=== PATIENT | female | born 1955 | race Caucasian/White ===

== ENCOUNTER 2021-04-08 09:19 | Day surgery (SDC) | payer MEDICARE ==
[2021-04-08] VITALS (9 sets, daily range): BP systolic 101–131; BP diastolic 48–72
[~2021-04-08] VITALS: Ht 157.5 cm; Wt 96.8 kg
[2021-04-08 10:15] LABS: BASOPHILS # (AUTO) 0.1 X10'3 (0-0.2); BASOPHILS % (AUTO) 1.1 % (0-1); EOSINOPHILS # (AUTO) 0.2 X10'3 (0-0.9); EOSINOPHILS % (AUTO) 2.8 % (0-6); HEMATOCRIT 41.4 % (35.0-45.0); HEMOGLOBIN 13.8 g/dl (12.0-16.0); LYMPHOCYTES # (AUTO) 1.5 X10'3 (1.1-4.8); LYMPHOCYTES % (AUTO) 24.2 % (21-51); MEAN CORPUSCULAR HGB CONC 33.2 g/dL (33.0-36.5); MEAN CORPUSCULAR VOLUME 87.2 FL (78-98); MEAN PLATELET VOLUME 8.3 FL (7.4-10.4); MONOCYTES # (AUTO) 0.5 X10'3 (0-0.9); MONOCYTES % (AUTO) 7.8 % (2-12); NEUTROPHILS % (AUTO) 64.1 % (42-75); PLATELET COUNT 247 X10'3 (140-440); RED BLOOD COUNT 4.75 X10'6 (4.20-5.60); RED CELL DISTRIBUTION WIDTH 14.5 % (11.5-14.5); WHITE BLOOD COUNT 6.3 X10'3 (4.5-11.0)
[2021-04-08] MEDS ORDERED: DULA0.75 SQ (10:33)
[2021-04-08] MEDS ORDERED: LEVO100C4 PO (10:33)
[2021-04-08] MEDS ORDERED: OMEP20TA5 PO (10:33)
[2021-04-08] MEDS ORDERED: ATOR20TA66 PO (10:33)
[2021-04-08] MEDS ORDERED: METF-436 PO (10:33)
[2021-04-08] MEDS ORDERED: SERT-434 PO (10:33)
[2021-04-08] MEDS ORDERED: diphenhydrAMINE 25mg capsule PO ONE (10:40)
[2021-04-08] MEDS ORDERED: LIDOcaine 1% (10mg/ml)w/preservative injection 20ml MDV ONE (10:51)
[2021-04-08] MEDS ORDERED: iohexol 350MG/ML 100ml bottle IV ONE (10:51)
[2021-04-08] MEDS ORDERED: iohexol 350 MG/ML 50ML vial IV ONE (10:51)
[2021-04-08] MEDS ORDERED: midazolam 1 mg/ML 2ml injection ONE (10:51)
[2021-04-08] MEDS ORDERED: fentaNYL/PF 50MCG/1 ML 2ML syringe ONE (10:51)
[2021-04-08 11:04] LABS: ALBUMIN 3.7 G/DL (3.4-5.0); ANION GAP 7 (8-16); BLOOD UREA NITROGEN 11 MG/DL (7-18); BUN/CREATININE RATIO 16.9 (6.6-38.0); CALCIUM 8.8 MG/DL (8.5-10.1); CHLORIDE 106 MMOL/L (99-107); CREATININE 0.65 MG/DL (0.40-0.90); GLUCOSE 111 MG/DL (70-104); MAGNESIUM 2.1 MG/DL (1.5-2.4); POTASSIUM 4.1 MMOL/L (3.5-5.1); SODIUM 143 MMOL/L (135-145); TOTAL CARBON DIOXIDE 29.9 MMOL/L (24-32); eGFR > 90 ML/MIN
[2021-04-08] MEDS ORDERED: acetaminophen 325mg tablet PO PRN (12:25)
[2021-04-08] MEDS ORDERED: HYDROcodone/acetaminophen 5mg/325mg tablet PO PRN (12:25)
[2021-04-08] MEDS ORDERED: HYDROcodone/acetaminophen 10/325mg tab PO PRN (12:25)
[2021-04-08] MEDS ORDERED: proCHLORperazine 10 MG/2 ml inj IV PRN (12:25)
[2021-04-08] MEDS ORDERED: ondansetron/PF 4mg/2ml inj IV PRN (12:25)
== END 2021-04-08 15:24 | disposition home or self-care (01) ==
LOC: SSTAY O 09:19
PROVIDERS: ATTEND Internal Medicine Cardiovascular Disease
DX: R94.30 Abnormal result of cardiovascular function study, unspecified (principal); E78.5 Hyperlipidemia, unspecified; R06.00 Dyspnea, unspecified; E66.09 Other obesity due to excess calories; K21.9 Gastro-esophageal reflux disease without esophagitis; E11.9 Type 2 diabetes mellitus without complications; E03.9 Hypothyroidism, unspecified; I51.7 Cardiomegaly; Z87.891 Personal history of nicotine dependence
CPT/HCPCS: 36415; 80048; 83735; 85025; 93005; 93458; C1760; C1769; C1894; J1644; J2001; J2250; J3010; Q9967; 99152; 99153; A4620; A6258

== ENCOUNTER 2021-07-19 05:18 | Inpatient (IN) | payer MEDICARE ==
[2021-07-13 16:57] LABS: BASOPHILS # (AUTO) 0.1 X10'3 (0-0.2); BASOPHILS % (AUTO) 0.9 % (0-1); EOSINOPHILS # (AUTO) 0.2 X10'3 (0-0.9); EOSINOPHILS % (AUTO) 3.1 % (0-6); LYMPHOCYTES % (AUTO) 27.5 % (21-51); MEAN CORPUSCULAR HEMOGLOBIN 28.7 PG (27.0-31.0); MEAN CORPUSCULAR HGB CONC 33.1 g/dL (33.0-36.5); MEAN CORPUSCULAR VOLUME 86.7 FL (78-98); MEAN PLATELET VOLUME 8.6 FL (7.4-10.4); MONOCYTES # (AUTO) 0.7 X10'3 (0-0.9); MONOCYTES % (AUTO) 9.5 % (2-12); NEUTROPHILS # (AUTO) 4.2 X10'3 (1.8-7.7); PRE OP HEMATOCRIT 42.1 % (35.0-45.0); PRE OP HEMOGLOBIN 13.9 g/dL (12.0-16.0); PRE OP PLATELET COUNT 267 X10'3 (140-440); RED BLOOD COUNT 4.86 X10'6 (4.20-5.60); RED CELL DISTRIBUTION WIDTH 13.5 % (11.5-14.5)
[2021-07-13 17:18] LABS: HEMOGLOBIN A1C 6.2 % (4.5-6.2)
[2021-07-13 17:25] LABS: ALBUMIN 3.8 G/DL (3.4-5.0); ALBUMIN/GLOBULIN RATIO 1.1 (1.1-1.5); ALKALINE PHOSPHATASE 88 IU/L (46-116); BLOOD UREA NITROGEN 10 MG/DL (7-18); BUN/CREATININE RATIO 15.4 (6.6-38.0); CALCIUM 8.7 MG/DL (8.5-10.1); CHLORIDE 102 MMOL/L (99-107); CREATININE 0.65 MG/DL (0.40-0.90); PRE OP ALT 62 U/L (30-65); PRE OP ANION GAP 9 (8-16); PRE OP AST 44 U/L (10-37); PRE OP BILIRUB, TOTAL 0.3 MG/DL (0.0-1.0); PRE OP GLUCOSE 103 MG/DL (70-104); PRE OP POTASSIUM 3.8 MMOL/L (3.4-5.1); PRE OP SODIUM 140 MMOL/L (135-145); TOTAL CARBON DIOXIDE 29.5 MMOL/L (24-32); TOTAL PROTEIN 7.3 G/DL (6.4-8.2); eGFR > 90 ML/MIN
[~2021-07-19] VITALS: Ht 157.5 cm; Wt 94.8 kg
[2021-07-19] VITALS (19 sets, daily range): BP systolic 90–131; BP diastolic 53–83
[~2021-07-19 05:18] MED LIST: ATOR40TA PO; DIPH50CA46 PO; DULA1.5P SQ; FERR-116 PO; LEVO100C4 PO; METF-436 PO; OMEG-79 PO; OMEP40CA21 PO; SERT50TA PO; ringers solution, lacted 1,000 ML IV SCH
[2021-07-19] MEDS ORDERED: vancomycin 1,500 MG in NS 300ml IV soln IV ONE (05:30)
[2021-07-19] MEDS ORDERED: cefazolin/dext.iso 2gm/100ml IV ONE (05:30)
[2021-07-19] MEDS ORDERED: famotidine 20mg tablet PO ONE (05:30)
[2021-07-19] MEDS ORDERED: tranexamic acid 650mg tablet PO ONE (05:30)
[2021-07-19] MEDS ORDERED: ketorolac trometh. 30mg/ml inj. ONE (06:52)
[2021-07-19] MEDS ORDERED: ROPIVAcaine 0.5% (5mg/ml) 30ml vial ONE ×2 (06:52→07:45)
[2021-07-19] MEDS ORDERED: cloNIDine hcl/PF 100mcg/ml inj ONE (07:12)
[2021-07-19] MEDS ORDERED: tetracaine 1% (10mg/ml) pres. free inj. ONE (07:12)
[2021-07-19] MEDS ORDERED: MIDAZolam 1 MG/ML 5ML VIAL ONE (07:15)
[2021-07-19] MEDS ORDERED: morphine /PF 1mg/ml 10ml inj. ONE (07:15)
[2021-07-19] MEDS ORDERED: 0.9 % SODIUM CHLORIDE 10 ML VIAL ONE ×2 (07:45)
[2021-07-19] MEDS ORDERED: ePHEDrine 50MG/ML INJ. ONE (07:45)
[2021-07-19] MEDS ORDERED: dexamethasone sod phosphate 4mg/ml inj. ONE (07:45)
[2021-07-19] MEDS ORDERED: propofol inj 20 ML IV ONE ×3 (07:45)
[2021-07-19] MEDS ORDERED: magnesium hydroxide 30ml (MOM) UD suspension PO PRN (09:55)
[2021-07-19] MEDS ORDERED: ondansetron/PF 4mg/2ml inj IV PRN ×3 (09:55)
[2021-07-19] MEDS ORDERED: naloxone 2mg/2ml inj 2 MG in normal saline 500ml IV soln 500 ML IV PRN (09:55)
[2021-07-19] MEDS ORDERED: bisacodyl 10mg suppository rectal RC PRN (09:55)
[2021-07-19] MEDS ORDERED: morphine 4 MG/ML inj SYRINge IV PRN (09:55)
[2021-07-19] MEDS ORDERED: HYDROmorphone 1 mg/ml syringe IV PRN (09:55)
[2021-07-19] MEDS ORDERED: morphine 2 MG/ML inj. syringe IV PRN (09:55)
[2021-07-19] MEDS ORDERED: diphenhydrAMINE 25mg capsule PO PRN ×2 (09:55)
[2021-07-19] MEDS ORDERED: HYDROmorphone inj. 0.5 MG/0.5 ML DISP.SYRIN IV PRN (09:55)
[2021-07-19] MEDS ORDERED: labetalol 20mg/4ml (5mg/ml) syringe IV PRN (09:55)
[2021-07-19] MEDS ORDERED: ringers solution, lacted 1,000 ML IV SCH (09:55)
[2021-07-19] MEDS ORDERED: acetaminophen 1,000mg/100ml IV 100 ML IV PRN (09:55)
[2021-07-19] MEDS ORDERED: diphenhydrAMINE 50 mg/ml inj IV PRN (09:55)
[2021-07-19] MEDS ORDERED: oxyCODONE IR 5mg (immed. release) tablet PO PRN ×2 (09:55)
[2021-07-19] MEDS ORDERED: meperidine/PF 25mg/ml syringe IV PRN (09:55)
[2021-07-19] MEDS ORDERED: proCHLORperazine 10 MG/2 ml inj IV PRN (09:55)
[2021-07-19] MEDS ORDERED: acetaminophen 325mg tablet PO PRN (09:55)
[2021-07-19] MEDS ORDERED: hydrALAZINE 20mg/ml inj. IV PRN (09:55)
--- NOTE | 2021-07-19 09:55 | NUR ---
Received from OR via , accompanied by Anesthesiologist and report given by Anesthesiolgist. PATIENT WAKING UP, DENIES PAIN, V/S WNL, NEUROCHECKS INTACT, SENSATIONS T11, 20G PIV LUE, DRESSING TO RIGHT KNEE CDI WITH COLD POWDER PACK, F/C DRAINING CLEAR YELLOW URINE. SCD ON.
--- NOTE | 2021-07-19 11:45 | NUR ---
PATIENTA&OX4, DENIES PAIN, V/S WNL, NEUROCHECKS INTACT, SENSATIONS T11, 20G PIV LUE, DRESSING TO RIGHT KNEE CDI WITH COLD POWDER PACK, F/C DRAINING CLEAR YELLOW URINE. SCD ON. REPORT CALLED AND PATIENT TRANSPORTED TO FLOOR AND HOOKED UP TO MONITORS IN NEW ROOM AND EXCEPTING RN HAS TAKEN OVER PATIENT CARE.
[2021-07-19] MEDS: potassium cl 20mEq in 1/2 NS 1,000 ML IV SCH ×2 (15:48→16:06)
[2021-07-19] MEDS: ceFAZolin/D5W- 1GM premix 50 ML IV SCH ×2 (15:59→23:51)
[2021-07-19] MEDS: gabapentin 300mg capsule PO SCH ×2 (16:12→21:31)
[2021-07-19] MEDS: acetaminophen 325mg tablet PO SCH ×2 (16:14→21:32)
[2021-07-19] MEDS ORDERED: metFORMIN 500mg tablet PO ONE (16:25)
[2021-07-19] MEDS: OMEGA-3/DHA/EPA/FISH OIL 1 EACH CAPSULE.DR PO SCH (20:00)
[2021-07-19] MEDS ORDERED: vancomycin/NS 1 GM ADD-VANTAGE 250 ML IV SCH (20:00)
[2021-07-19] MEDS ORDERED: DIPHENHYDRAMINE HCL PO SCH (21:00)
[2021-07-19] MEDS ORDERED: atorvastatin 20mg tablet PO SCH (21:00)
[2021-07-19] MEDS ORDERED: sennosides 8.6mg tablet PO SCH (21:00)
[2021-07-20 00:06] VITALS: BP 105/54
[2021-07-20] MEDS: potassium cl 20mEq in 1/2 NS 1,000 ML IV SCH ×2 (01:55→09:55)
[2021-07-20] MEDS: acetaminophen 325mg tablet PO SCH ×2 (02:55→08:00)
[2021-07-20 03:06] VITALS: BP 93/52
[2021-07-20 06:05] LABS: BASOPHILS % (AUTO) 0.2 % (0-1); EOSINOPHILS # (AUTO) 0.1 X10'3 (0-0.9); EOSINOPHILS % (AUTO) 0.5 % (0-6); HEMATOCRIT 35.2 % (35.0-45.0); HEMOGLOBIN 11.4 g/dl (12.0-16.0); LYMPHOCYTES # (AUTO) 1.1 X10'3 (1.1-4.8); LYMPHOCYTES % (AUTO) 9.9 % (21-51); MEAN CORPUSCULAR HEMOGLOBIN 28.7 PG (27.0-31.0); MEAN CORPUSCULAR HGB CONC 32.3 g/dL (33.0-36.5); MEAN CORPUSCULAR VOLUME 88.7 FL (78-98); MEAN PLATELET VOLUME 8.4 FL (7.4-10.4); MONOCYTES # (AUTO) 1.1 X10'3 (0-0.9); MONOCYTES % (AUTO) 10.3 % (2-12); NEUTROPHILS # (AUTO) 8.5 X10'3 (1.8-7.7); NEUTROPHILS % (AUTO) 79.1 % (42-75); PLATELET COUNT 229 X10'3 (140-440); RED BLOOD COUNT 3.97 X10'6 (4.20-5.60); RED CELL DISTRIBUTION WIDTH 13.6 % (11.5-14.5); WHITE BLOOD COUNT 10.8 X10'3 (4.5-11.0)
--- NOTE | 2021-07-20 06:06 | NUR ---
reported to days. noted pt anticipates discharge home. educated on PT and discharge routine. d/c annette
[2021-07-20 06:11] LABS: CHLORIDE 108 MMOL/L (99-107); TOTAL CARBON DIOXIDE 27.4 MMOL/L (24-32)
[2021-07-20 06:12] LABS: ANION GAP 7 (8-16); POTASSIUM 4.1 MMOL/L (3.5-5.1); SODIUM 142 MMOL/L (135-145)
[2021-07-20 07:00] VITALS: BP 108/63
[2021-07-20] MEDS ORDERED: levoTHYROXINE 100mcg tablet PO SCH (07:00)
[2021-07-20] MEDS ORDERED: sertraline 50mg tablet PO SCH (08:00)
[2021-07-20] MEDS ORDERED: ferrous sulfate 325mg tablet PO SCH (08:00)
[2021-07-20] MEDS ORDERED: metFORMIN 500mg tablet PO SCH (08:00)
[2021-07-20] MEDS: OMEGA-3/DHA/EPA/FISH OIL 1 EACH CAPSULE.DR PO SCH (08:00)
[2021-07-20] MEDS: gabapentin 300mg capsule PO SCH ×2 (08:00→14:10)
[2021-07-20] MEDS ORDERED: pantoprazole 40mg Tablet.DR PO SCH (08:00)
[2021-07-20] MEDS ORDERED: aspirin 325mg tablet PO SCH (08:30)
--- NOTE | 2021-07-20 14:35 | NUR ---
Joint Surgery Consult: Pt s/p R knee surgery this admit hx T2DM A1C 6.2. PO 100% initial carb controlled diet; KANDY d/w RN regarding carb controlled diet given DM hx. Pt seen by KANDY for written/verbal high protein ed w/ RD contact information provided. Pt reports uses soy protein powder at home. RD encouraged pt to contact dietitian's office if further questions/concerns. Addendum: 07/20/21 at [address] Amended: Links added.
[2021-07-21] MEDS ORDERED: acetaminophen 325mg tablet PO PRN (09:55)
[2021-07-24] MEDS ORDERED: Dulaglutide (Trulicity) 0.5 ML INJ SQ SCH (08:00)
== END 2021-07-20 15:08 | disposition home or self-care (01) | DRG 470 ==
LOC: PAS 05:18 → EDSTATUS 07:30 → SUR 3N 09:53
PROVIDERS: ADMIT Orthopaedic Surgery; ATTEND Orthopaedic Surgery
PROC: 8E0YXBZ Computer Assisted Procedure of Lower Extremity (ICD-10-PCS; 2021-07-19)
PROC: 8E0Y0CZ Robotic Assisted Procedure of Lower Extremity, Open Approach (ICD-10-PCS; 2021-07-19)
PROC: 3E0T3BZ Introduction of Anesthetic Agent into Peripheral Nerves and Plexi, Percutaneous Approach (ICD-10-PCS; 2021-07-19)
PROC: 0SRC0J9 Replacement of Right Knee Joint with Synthetic Substitute, Cemented, Open Approach (ICD-10-PCS; principal; 2021-07-19 07:08)
DX: M17.11 Unilateral primary osteoarthritis, right knee (principal); D62 Acute posthemorrhagic anemia; M21.161 Varus deformity, not elsewhere classified, right knee; Z79.899 Other long term (current) drug therapy
CPT/HCPCS: 36415; 80051; 80053; 82948; 83036; 84443; 85025; 87081; 97110; 97116; 97161; 97530; A4215; A7000; C1713; C1758; C1776; G0378; J0690; J0735; J1100; J1885; J2250; J2270; J2704; J2795; J3370; J3480; J7040; J7120; U0003; U0005